=== PATIENT | female | born 1955 | race Caucasian/White ===

== ENCOUNTER 2022-12-17 11:14 | Outpatient (REF) | payer MEDICARE, SELFPAY ==
[2022-12-17 13:39] LABS: Appearance Urine Clear; Color Urine Yellow; Glucose Urine UA Negative (Negative); Leukocyte Esterase Urine Large (3+) (Negative); Nitrite Urine Negative (Negative); PH 5.5 (5.0-9.0); Specific Gravity - Urine 1.015 (1.005-1.025); UMIC TRIGGER UA YES; Urine Blood Negative (Negative); Urine Ketones Trace mg/dL (Negative); Urine Protein Negative (Neg-Trace)
[2022-12-17 13:43] LABS: MANUAL DIFF FLAG NO
[2022-12-17 13:43] LABS: Bacteria Urine None Seen (None Seen); Hyaline Casts Urine 0-2 /LPF (0-2); RBC Urine 0-2 /HPF (0-2); Squamous Epithelial Cell Urine 0-2 /HPF (0-2)
[2022-12-17 13:50] LABS: Basophils Percent Auto 0.4 % (0-2); Eosinophils Absolute Auto 0.1 X10*3/uL (0.0-0.4); Eosinophils Percent Auto 1.2 % (0-4); Hematocrit 44.4 % (37.0-47.0); Hemoglobin 14.5 g/dl (12.0-16.0); Imm Gran Abs Auto 0.01 X10*3/uL (0.00-0.03); Imm Gran Pct Auto 0.2 % (0.0-0.4); Lymphocytes Absolute Auto 1.6 X10*3/uL (1.2-4.9); Lymphocytes Percent Auto 28.3 % (20-40); Mean Corpuscular HGB Conc 32.7 g/dl (31.0-35.0); Mean Corpuscular Hemoglobin 29.2 pg (27.0-33.0); Mean Corpuscular Volume 89.5 fL (80.0-98.0); Mean Platelet Volume 11.8 fL (9.4-12.3); Monocytes Absolute Auto 0.4 X10*3/uL (0.1-1.2); Monocytes Percent Auto 7.6 % (2-11); Neutrophils Absolute Auto 3.5 x10*3/uL (2.0-8.3); Neutrophils Percent Auto 62.3 % (45-73); Platelet Count 122 X10*3/uL (160-400); Red Blood Count 4.96 X10*6/uL (4.20-5.50); Red Cell Distribution Width 12.5 % (11.0-16.0); White Blood Count 5.7 X10*3/uL (4.8-10.8)
[2022-12-17 14:20] LABS: Alanine Aminotransferase 21 U/L (0-31); Alkaline Phosphatase 73 U/L (39-117); Anion Gap 12 (12-20); Aspartate Amino Transferase 20 U/L (5-31); Bilirubin Total 0.7 mg/dL (0.0-1.0); Blood Urea Nitrogen 10 mg/dL (9-16); Carbon Dioxide 29 mmol/L (22-29); Chloride 106 mmol/L (96-108); Cholesterol 191 mg/dL; Estimated Glomerular Filt Rate > 60; Glucose Fasting 91 mg/dL (60-99); HDL Cholesterol 50 mg/dL; LDL Cholesterol Calculated 128 mg/dl; Potassium 4.8 mmol/L (3.3-5.1); Sodium 142 mmol/L (135-145); Total Protein 6.1 g/dL (6.5-8.0); Triglycerides 68 mg/dL
[2022-12-17 14:40] LABS: Free T4 (Free Thyroxine) 1.09 ng/dL (0.71-1.85); Thyroid Stimulating Hormone 0.48 uIU/mL (0.32-4.0); Vitamin D 25-OH Total 24.9 ng/mL (>30)
== END 2022-12-17 11:15 | disposition home or self-care (01) ==
LOC: HO.10HDL 11:14
PROVIDERS: Visit Provider Internal Medicine
DX: Z00.00 Encounter for general adult medical examination without abnormal findings (principal)
CPT/HCPCS: 36415; 80053; 80061; 81001; 82306; 84439; 84443; 85025

== ENCOUNTER 2022-12-22 11:45 | Outpatient (REF) | payer MEDICARE, SELFPAY ==
[2022-12-22 14:00] LABS: Appearance Urine Clear; Color Urine Yellow; Glucose Urine UA Negative (Negative); Leukocyte Esterase Urine Small (1+) (Negative); Nitrite Urine Negative (Negative); PH 6.5 (5.0-9.0); Specific Gravity - Urine 1.015 (1.005-1.025); UMIC TRIGGER UACC YES; Urine Blood Negative (Negative); Urine Ketones Negative (Negative); Urine Protein Negative (Neg-Trace)
[2022-12-22 14:06] LABS: Bacteria Urine None Seen (None Seen); Hyaline Casts Urine 0-2 /LPF (0-2); RBC Urine 0-2 /HPF (0-2); Squamous Epithelial Cell Urine 0-2 /HPF (0-2); UACC Culture Trigger YES
== END 2022-12-22 11:46 | disposition home or self-care (01) ==
LOC: HO.10HDL 11:45
PROVIDERS: Visit Provider Internal Medicine
DX: R31.9 Hematuria, unspecified (principal)
CPT/HCPCS: 81001; 87086

== ENCOUNTER 2024-07-07 08:00 | Outpatient (RCR) | payer MEDICARE, SELFPAY | END 2024-07-07 08:40 | disposition home or self-care (01) | LOC: HO.PT 08:00 | PROVIDERS: PCP Internal Medicine; Visit Provider Obstetrics & Gynecology | DX: R32 Unspecified urinary incontinence (principal) | CPT/HCPCS: 97112; 97140; 97162 ==

== ENCOUNTER 2024-07-07 08:39 | Outpatient (REF) | payer MEDICARE, SELFPAY ==
[2024-07-07 08:56] LABS: MANUAL DIFF FLAG NO
[2024-07-07 09:11] LABS: Appearance Urine Clear; Basophils Percent Auto 0.8 % (0-2); Color Urine Yellow; Eosinophils Absolute Auto 0.1 X10*3/uL (0.0-0.4); Eosinophils Percent Auto 1.1 % (0-4); Glucose Urine UA Negative (Negative); Hematocrit 43.7 % (37.0-47.0); Hemoglobin 14.4 g/dl (12.0-16.0); Imm Gran Abs Auto 0.01 X10*3/uL (0.00-0.03); Imm Gran Pct Auto 0.2 % (0.0-0.4); Leukocyte Esterase Urine Negative (Negative); Lymphocytes Absolute Auto 1.1 X10*3/uL (1.2-4.9); Lymphocytes Percent Auto 21.2 % (20-40); Mean Corpuscular Hemoglobin 30.1 pg (27.0-33.0); Mean Corpuscular Volume 91.2 fL (80.0-98.0); Mean Platelet Volume 10.7 fL (9.4-12.3); Monocytes Absolute Auto 0.4 X10*3/uL (0.1-1.2); Monocytes Percent Auto 8.4 % (2-11); Neutrophils Absolute Auto 3.6 x10*3/uL (2.0-8.3); Neutrophils Percent Auto 68.3 % (45-73); Nitrite Urine Negative (Negative); PH 7.5 (5.0-9.0); Platelet Count 152 X10*3/uL (160-400); Red Blood Count 4.79 X10*6/uL (4.20-5.50); Red Cell Distribution Width 12.6 % (11.0-16.0); Specific Gravity - Urine <= 1.005 (1.005-1.025); Urine Blood Negative (Negative); Urine Ketones Negative (Negative); Urine Protein Negative (Neg-Trace); White Blood Count 5.2 X10*3/uL (4.8-10.8)
[2024-07-07 09:46] LABS: Alanine Aminotransferase 20 U/L (0-31); Albumin Level 4.1 g/dL (3.5-5.0); Alkaline Phosphatase 81 U/L (39-117); Anion Gap 9 (12-20); Aspartate Amino Transferase 17 U/L (5-31); Bilirubin Total 0.8 mg/dL (0.0-1.0); Blood Urea Nitrogen 13 mg/dL (9-16); Calcium 9.6 mg/dL (8.4-10.2); Carbon Dioxide 30 mmol/L (22-29); Chloride 107 mmol/L (96-108); Cholesterol 177 mg/dL (<200); Estimated Glomerular Filt Rate > 60; Glucose Fasting 103 mg/dL (60-99); HDL Cholesterol 61 mg/dL (>40); LDL Cholesterol Calculated 105 mg/dL (<100); Potassium 4.3 mmol/L (3.3-5.1); Sodium 142 mmol/L (135-145); Total Protein 6.6 g/dL (6.5-8.0); Triglycerides 57 mg/dL (<150)
[2024-07-07 10:04] LABS: Vitamin D 25-OH Total 59.7 ng/mL (>30)
== END 2024-07-07 08:40 | disposition home or self-care (01) ==
LOC: HO.LAB 08:39
PROVIDERS: PCP Internal Medicine; Visit Provider Internal Medicine
DX: E78.00 Pure hypercholesterolemia, unspecified (principal); M85.88 Other specified disorders of bone density and structure, other site; H40.9 Unspecified glaucoma
CPT/HCPCS: 36415; 80053; 80061; 81003; 82306; 85025; 87086

== ENCOUNTER 2025-07-13 08:36 | Outpatient (REF) | payer MEDICARE, SELFPAY ==
[2025-07-13 09:36] LABS: MANUAL DIFF FLAG NO
[2025-07-13 10:32] LABS: Hematocrit 44.1 % (37.0-47.0); Hemoglobin 14.5 g/dl (12.0-16.0); Imm Gran Abs Auto 0.02 X10*3/uL (0.00-0.03); Imm Gran Pct Auto 0.3 % (0.0-0.4); Lymphocytes Absolute Auto 1.3 X10*3/uL (1.2-4.9); Mean Corpuscular HGB Conc 32.9 g/dl (31.0-35.0); Mean Corpuscular Hemoglobin 30.3 pg (27.0-33.0); Mean Corpuscular Volume 92.3 fL (80.0-98.0); NRBC Abs Auto 0.000 X10*3/uL (0.0-0.012); NRBC Pct Auto 0.0 /100WBC (0.0-0.2); Platelet Count 163 X10*3/uL (160-400); Red Blood Count 4.78 X10*6/uL (4.20-5.50); White Blood Count 6.2 X10*3/uL (4.8-10.8)
[2025-07-13 11:00] LABS: Alanine Aminotransferase 24 U/L (0-31); Albumin Level 4.3 g/dL (3.5-5.0); Alkaline Phosphatase 84 U/L (39-117); Anion Gap 10 (12-20); Aspartate Amino Transferase 34 U/L (5-31); Blood Urea Nitrogen 15 mg/dL (9-16); Calcium 9.7 mg/dL (8.4-10.2); Carbon Dioxide 29 mmol/L (22-29); Chloride 108 mmol/L (96-108); Cholesterol 171 mg/dL (<200); Estimated Glomerular Filt Rate > 60; HDL Cholesterol 60 mg/dL (>40); Potassium 4.3 mmol/L (3.3-5.1); Sodium 143 mmol/L (135-145); Total Protein 6.6 g/dL (6.5-8.0); Triglycerides 97 mg/dL (<150)
== END 2025-07-13 08:37 | disposition home or self-care (01) ==
LOC: HO.LAB 08:36
PROVIDERS: PCP Internal Medicine; Visit Provider Student in an Organized Health Care Education/Training Program
DX: Z76.89 Persons encountering health services in other specified circumstances (principal); Z13.1 Encounter for screening for diabetes mellitus; M85.80 Other specified disorders of bone density and structure, unspecified site; H40.9 Unspecified glaucoma; E78.49 Other hyperlipidemia; K64.4 Residual hemorrhoidal skin tags; Z85.3 Personal history of malignant neoplasm of breast
CPT/HCPCS: 36415; 80053; 80061; 82306; 83036; 84443; 85025; 96127; 99202

== ENCOUNTER 2025-07-13 08:36 | Outpatient (AMB) | payer MEDICARE, SELFPAY ==
--- NOTE | 2025-07-13 07:45 | A.OFFPC_ITS ---
Vital Signs 07/13/25 08:42 Height 5 ft 1 in Weight 139 lb BMI 26.3 BP 110/72 Blood Pressure Location Rt brachial Position Sitting Respiration 18 Pulse 84 Pulse Source Pulse Oximeter Temp 97.9 F Temp Source Temporal Artery Scan Pulse Oximetry (%) 98 Oxygen Delivery Method Room Air Intake Visit Reasons: Routine /Dr Langston Planner Scheduler Required: No Accompanied by: Self / Same As Patient Allergies No Known Allergies Allergy (Verified 07/13/25 07:45) Medication List - Last Reconciled 07/13/25 by Joseph Palacios MD ascorbate calcium (vitamin C) 500 mg PO DAILY calcium carb-vitamin D3-vit K2 500 mg calcium- 200 unit-90 mcg tabs PO latanoprost 0.005% drps ophthalmic (eye) multivitamin 1 tab PO DAILY Tobacco use date assessed: 07/13/25 Fall risk assessment: No Falls in past year Last assessed Fall Risk: 07/13/25 Dental Screening Dental Screen Date: 07/13/25 Did you have a dental visit in the last 12 months?: Yes Did you have a dental problem in the last 6 months where you did not have access to dental care?: No Was dental information given to patient?: Patient has dentist HPI HPI Comments History of Present Illness Details The patient is a 69-year-old female presenting with a concern regarding hemorrhoids. She reports the presence of a small lump in the rectal area, which she initially noticed after undergoing a hysterectomy at the beginning of the year. The lump does not cause pain but feels unusual. The patient follows a healthy diet high in fiber, which she believes helps maintain regular bowel movements, though these do not alleviate the lump issue. During this visit, she expressed the desire to address this concern and sought a professional evaluation. The patient has a past medical history significant for breast cancer, with two episodes managed with treatment, and the most recent recurrence occurring two to three years ago. She underwent a left breast mastectomy followed by reconstruction. She also has a history of having undergone cataract surgery for ocular issues, and she currently manages ocular hypertension with latanoprost eye drops. Additionally, the patient has been diagnosed with osteopenia and is managing it through lifestyle and dietary modifications. She reports seasonal allergies, which occur intermittently. There is no known family history of heart disease or diabetes, though her mother had breast and uterine cancer. Medical History: - Breast cancer, twice treated; last rec urrence 2-3 years ago followed by left breast mastectomy and reconstruction - History of hysterectomy earlier this y ear - Cataract surgery for ocular issues - Osteopenia - Ocular hypertension - Seasonal allergies Surgical History: - Left breast mastectomy with reconstruc tion - Hysterectomy at the beginning of this year - Cataract surgery Medications: - Latanoprost eye drops (for ocular hype rtension) - Multivitamins - Vitamin C and calcium supplementation - Super blue-green algae Family History: - Maternal history of breast and uterine cancer - No family history of heart disease or diabetes reported Social History: - Currently living in her mother's house post-divorce - No use of tobacco, alcohol, marijuana, cocaine, heroin - Diet emphasizes healthy eating, high i n fiber with minimal junk or sugary foods - Participates in regular physical activ ity, including [employer]ating and work as a polygenist - Experiences a high stress level while caring for an elderly parent - Noted weight loss potentially related to stress, recently stabilized [facility] Medical History (Updated 07/13/25 @ 09:32 by Joseph Palacios MD) Hemorrhoidal skin tag Hyperlipidemia Glaucoma Osteopenia History of breast cancer Establishing care with new doctor, encounter for Surgical History (Updated 07/13/25 @ 09:29 by Joseph Palacios MD) Status post abdominal hysterectomy History of colonoscopy (~06/22/17) Social History Housing: House Patient Tobacco Use Status: Never used Tobacco e-Cigarette/Vaping Use: Never Used service: No Current occupational status: employed and retired Current occupation: [employer] Questionnaire PHQ-9 Over the last 2 weeks, how often have you been bothered by any of the following problems? 1. Little interest or pleasure in doing things: not at all 2. Feeling down, depressed, or hopeless: not at all 3. Trouble falling or staying asleep, or sleeping too much: not at all 4. Feeling tired or having little energy: not at all 5. Poor appetite or overeating: not at all 6. Feeling bad about yourself - or that you are a failure or have let yourself or your family down: not at all 7. Trouble concentrating on things, such as reading the newspaper or watching television: not at all 8. Moving or speaking so slowly that other people could have noticed. Or the opposite - being so fidgety or restless that you have been moving around a lot more than usual: not at all 9. Thoughts that you would be better off or of hurting yourself in some way: not at all Total score: 0 Depression Screening Interpretation: Negative Depression Screening Done: Yes 72437 - PHQ-9 Billing: Yes Source: Developed by Drs. Stan López, Roopa Marques, Nestor Tavarez and colleagues, with an educational bryant from [email or web address]. Thrive Questionnaire Date Thrive assessed: 07/13/25 I am a: Patient What is your living situation today?: I have a steady place to live Within the past 12 months, did the food you bought not last and you didn't have the money to get more?: Never true Within the past 12 months, did you worry whether your food would run out before you got money to buy more?: Never true Do you have trouble paying for medicines?: No Do you have trouble getting transportation to medical appointments?: No Do you have trouble paying your heating and electricity bill?: No Do you have trouble taking care of your child, family member or friend?: No Do you have trouble with day-to-day activities such as bathing, preparing meals, shopping, managing finances, etc.?: No Are you currently unemployed and looking for a job?: No Are you interested in more education?: No THRIVE Score: 0 AUDIT C Alcohol Use Questionnaire (AUDIT-C) 1. How often do you have a drink containing alcohol?: Never 3. How often do you have six or more drinks on one occasion?: Never Total Score: 0 Score Reviewed/Action Taken: Yes CHARLOTTE-7 AMB Questionnaire CHARLOTTE-7 Date CHARLOTTE - 7 assessed: 07/13/25 Feeling nervous, anxious, or on edge: 0 = Not at all Not being able to stop or control worryin = Not at all Worrying too much about different things: 0 = Not at all Trouble relaxin = Not at all Being so restless that it is hard to sit still: 0 = Not at all Becoming easily annoyed or irritable: 0 = Not at all Feeling afraid as if something awful might happen: 0 = Not at all Total CHARLOTTE-7 score (0-4 normal; 5-9 mild; 10-14 moderate; 15-21 severe): 0 Source: Developed by Drs. Stan López, Roopa Marques, Nestor Tavarez and colleagues, with an educational bryant from [email or web address]. CHARLOTTE-7 Assessment Billing CHARLOTTE-7 Assessment Tool: CHARLOTTE-7 Assessment 83348 Review of Systems Const Details: - Constitutional: Denies depression; mood good; denies weight gain - HEENT: Reports past cataract surgery - Cardiovascular: Denies family history of heart disease - Respiratory: No symptoms reported - Gastrointestinal: Reports a rectal lump; denies bowel movement issues - Genitourinary: Post-hysterectomy - Musculoskeletal: Engages in regular exercise; reports multivitamin use - Allergic/Immunologic: Reports seasonal allergies - Skin/Breast: Hemorrhoid issue mentioned All systems reviewed & are unremarkable except as reviewed in HPI and above Physical exam (Primary Care) Vital Signs: Last Vital Signs Temp 97.9 F 07/13/25 08:42 Pulse 84 07/13/25 08:42 Resp 18 07/13/25 08:42 BP 110/72 07/13/25 08:42 Pulse Ox 98 07/13/25 08:42 Oxygen Delivery Method Room Air 07/13/25 08:42 BMI result Body Mass Index 26.3 Tobacco/Smoking Status: Tobacco use Status Tobacco use date assessed 07/13/25 07/13/25 07:46 Patient Tobacco Use Status Never used Tobacco 07/13/25 08:46 e-Cigarette/Vaping Use Never Used 07/13/25 08:46 PHQ-9: PHQ-9 Score PHQ-9: Total score 0 07/13/25 08:50 Depression Screening Interpretation: Negative Thrive Assessment: Date of Thrive Assessment Date Thrive assessed 07/13/25 07/13/25 08:50 Const Other: General: +Alert and oriented, Well nourished, No acute distress. Eye: Pupils are equal, round and reactive to light, Intact accommodation, Extraocular movements are intact, Normal conjunctiva, Vision unchanged. HENT: Normocephalic, Atraumatic, Tympanic membranes are clear, Normal hearing, Oral mucosa is moist, No pharyngeal erythema, Ear canals patent. Respiratory: Lungs CTA bilaterally, No wheeze, Respirations are non-labored. Cardiovascular: Regular rate, Regular rhythm, S1 auscultated, S2 auscultated, No murmur, Good pulses equal in all extremities, Normal peripheral perfusion, Mild swelling in legs. Gastrointestinal: Soft, Non-tender, Non-distended, Normal bowel sounds, No organomegaly, Presence of external hemorrhoid. Musculoskeletal: Normal range of motion, Normal strength, No tenderness, No swelling, No deformity, Normal gait. Integumentary: Warm, Dry, [place], Intact. Neurologic: Alert, Oriented, Normal sensory, Normal motor function, No focal defects, Cranial Nerves II-XII are grossly intact, Normal deep tendon reflexes. Psychiatric: Cooperative, Appropriate mood & affect, Normal judgment. Coding Level of Care Code New Pt Level 4 (29049) Diagnoses History of breast cancer Z85.3 Status post abdominal hysterectomy Z90. Osteopenia, unspecified location M85.80 Osteopenia location: unspecified Glaucoma, unspecified glaucoma type, unspecified laterality H40.9 Glaucoma type: unspecified Laterality: unspecified laterality Other hyperlipidemia E78.49 Hyperlipidemia type: other hyperlipidemia Hemorrhoidal skin tag K64.4 Additional Codes CHARLOTTE-7 Assessment Billing - CHARLOTTE-7 Assessment Tool: CHARLOTTE-7 Assessment 49201 ([id number]) PHQ-9 - 73370 - PHQ-9 Billing: Yes ([id number]) Time Spent (min) 35 Assessment & Plan Assessment & Plan (1) History of breast cancer: Comment: - Previous mastectomy and reconstruction noted; patient in remission. - Continues regular follow-up as per oncological recommendations. - Uptodate on screening Code(s): Z85.3 - Personal history of malignant neoplasm of breast Category: Medical (2) Status post abdominal hysterectomy: Comment: - Status post hysterectomy October of this year - Currently stable without any complaints Code(s): Z90.710 - Acquired absence of both cervix and uterus Category: Surgical (3) Osteopenia: Comment: - Completed a bone scan at a center in [place], and diagnosed with osteopenia - Currently being managed with OTC supplementation - Requested patient bring records from external center Code(s): M85.80 - Other specified disorders of bone density and structure, unspecified site Category: Medical Qualifiers: Osteopenia location: unspecified Qualified Code(s): M85.80 - Other specified disorders of bone density and structure, unspecified site (4) Glaucoma: Comment: - Managed with latanoprost eye drops; follow up with supervisor dog license officer as needed. Code(s): H40.9 - Unspecified glaucoma Category: Medical Qualifiers: Glaucoma type: unspecified Laterality: unspecified laterality Qualified Code(s): H40.9 - Unspecified glaucoma (5) Hyperlipidemia: Comment: - Discussed the importance of regular monitoring and potential lifestyle modifications to manage cholesterol. - Last LDL elevated over 100, patient also not interested in medication Code(s): E78.5 - Hyperlipidemia, unspecified Category: Medical Qualifiers: Hyperlipidemia type: other hyperlipidemia Qualified Code(s): E78.49 - Other hyperlipidemia Plan: Health maintenance: - Regular screening mammography up to date; next due in 2025. - Recommended earlier colonoscopy given 8-9 years since the last screening and current concerns. - Reinforcement of healthy lifestyle, diet, and exercise - Advised compression stockings for leg swelling Patient was informed and verbally consented to the use of an ambient scribe for clinic note documentation during this visit. (6) Hemorrhoidal skin tag: Comment: Reports having a lesion around her rectum for multiple years that has not changed in size and remains stable and without causing any discomfort with defecation or any active concerns. On exam does have a skin tag at the 6 o'clock position which is not tender or 10. Code(s): K64.4 - Residual hemorrhoidal skin tags Category: Medical Plan Today, we reviewed the patient's history and current concerns. I conducted a physical examination which confirmed its classification as a skin tag. After a discussion about management options, I advised a conservative approach, focusing on dietary adjustments given the absence of pain. I also addressed the patient's concerns over her post-mastectomy care, her ocular health, and general lifestyle, including osteopenia management. Regarding her cholesterol, I suggested dietary monitoring. We also revisited her screening needs, punctuating the importance of a follow-up colonoscopy and adherence to health maintenance schedules, including compression stockings for leg edema. Plans to follow up annually or as necessary based on her evolving healthcare needs were established. Orders: Orders Complete Blood Count Auto Diff Today Z76.89 - Persons encountering health services in other specified circumstances Hemoglobin A1c Today Z76.89 - Persons encountering health services in other specified circumstances Lipid Panel Today Z76.89 - Persons encountering health services in other specified circumstances TSH reflex Free T4 Today Z76.89 - Persons encountering health services in other specified circumstances Vitamin D 25-OH Total Today Z76.89 - Persons encountering health services in other specified circumstances Comprehensive Met. Panel Today Z76.89 - Persons encountering health services in other specified circumstances Patient Instructions: - Increase dietary fiber intake to help manage the hemorrhoid. - Continue to use latanoprost eye drops as prescribed. - Engage in regular exercise and maintain current lifestyle habits. - Wear compression stockings to help with leg swelling. - Schedule a colonoscopy sooner than the initially planned date, due to increased concerns. - Monitor cholesterol levels through dietary intake and regular screening. - Follow up annually or as needed based on healthcare requirements.
[2025-07-13 08:42] VITALS: BP 110/72; PULSE 84; RESP 18; TEMP 36.6; O2SAT 98; BMI 26.3
--- OUTSIDE RECORDS SUMMARY | 2025-07-13 08:55 | XMS_ITS | Clinical Summary ---
Author Organization [facility] Address [address] [place] [phone] Phone Care Team Providers Care Signal Mechanic Name Role Phone Shady Langston MD Primary Care Provider Social History Tobacco Use Types Packs/Day Years Used Date Smoking Tobacco: Never Assessed Comments Unknown Sex and Gender Information Value Date Recorded Sex Assigned at Not on file Legal Sex Female 2:22 PM EDT Gender Identity Not on file Sexual Orientation Not on file Plan of Treatment Not on file Medical Devices Not on file Insurance [employer] POS PPO REPLACEMENT [employer] PPO REPLACEMENT [employer] [place] PPO REPLACEMENT [employer] [employer] PPO REPLACEMENT [employer] [place] [employer] PPO REPLACEMENT [employer] PPO REPLACEMENT Care Teams Signal Mechanic Relationship Specialty Start Date End Date Shady Langston MD [address] [place] [address] Dr PHILLIP [address] [place] [id number] PCP - General Internal Medicine 03/21/24 Additional Source Comments The information contained in this document represents components of the legal health record. It is not the complete legal health record.[facility]
--- OUTSIDE RECORDS SUMMARY | 2025-07-13 08:55 | XMS_ITS | Patient Health Record ---
Author Organization [facility] Address [address] [place] [address] Care Team Providers Care Customer Engineer Name Role Phone Bea Manning DO Primary Care Provider David Moore Unavailable [phone] Reason For Referral No Information Medications Medication SIG (Take, Route, Fr equency, Duration) Notes Start Date End Date Status Multivitamin Active Vitamin D 2000 UNIT Orally Active Problems No Known Problems Plan Of Treatment No Information Insurance Providers Payer Name Payer Address Payer Phone Subscriber Number Group Number Insured Name Patient Relationship to Insured Coverage Start Date Coverage End Date [facility] [address] [place] [address] [id number] Vince Sher Spouse - patient is the spouse of the insured Medical (General) History Medical History History ICD Code Measles Mumps Chicken pox breast cancer Surgical History Surgery Date(Month/Year) appendectomy tonsillectomy and adenoidectomy breast tumor removal rotator cuff tear repair
--- OUTSIDE RECORDS SUMMARY | 2025-07-13 08:55 | XMS_ITS | Continuity of Care Document ---
Author Organization [facility] [address] [place] [address] Phone [phone] Care Team Providers Care Culinary Art Teacher Name Role Phone Shady Langston M.D. Care Team Information Receiv er [phone] Problems Active Problems Provider Date Carcinoma of breast Ella Wu M.D. Onset: 07/13/2023 Osteopenia Ella Wu M.D. Ons et: 07/13/2023 Social History Type Date Description Comments Sex Female Sex Unknown Lives With Spouse Occupation Dental Hygienist Work Status Part-Time Employment ETOH Use Occasionally consumes alcoho l Tobacco Use Start: Unknown Patient has never smoked Allergies and adverse reactions Description No Known Drug Allergies Medications Active Medications SIG Qnty Indications Order ing Provider Date Latanoprost0.005% Solution apply one drop to each eye at bedtime. Unknown Vitamin C993uhv (1000 Ut) Capsules 1 by mouth every day 100caps Ella Wu M.D. ProbioticTablets DR 1 by mouth every day Ella Wu M.D. Multivitamin Adults 50+Adlt 50+ Tablets 1 by mouth every day Ella Wu M.D. Vital Signs Date Vital Result Comment 07/14/2024 9:07am BP Systolic 138 mmHg BP Diastolic 78 mmHg Heart Rate 100 /min Height 61 inches 5'1 Weight 137.38 lb BMI (Body Mass Index) 26.0 kg/m2 Results Test Acquired Date Facility Test Result H/L Range Note TSH Rfx on Abnormal to Free T4 07/14/2024 [facility] TSH Rfx on Abnormal to Free T4 0.525 uIU/mL 0.450-4. 500 Electrolytes 09/14/2023 [facility] Sodium 143 mmol/L (133-145 ) Potassium 4.7 mmol/L (3.6-5.2 ) Chloride 107 mmol/L (98-107) Bicarbonate 26 mmol/L (22-29) Anion Gap 10 (4-17) Comprehensive Metabolic Panl 08/24/2023 [facility] Glucose 105 mg/dL High (70-99) BUN 16 mg/dL (8-23) Creatinine 0.6 mg/dL (0.5-1.0 ) Sodium 141 mmol/L (133-145 ) Potassium 5.4 mmol/L High (3.6-5.2 ) Chloride 105 mmol/L (98-107) Bicarbonate 27 mmol/L (22-29) Anion Gap 9 (4-17) Albumin 4.0 GM/DL (3.4-4.8 ) Calcium 9.6 mg/dL (8.6-10. 5) Bilirubin,Total 0.5 mg/dL (0-1.2 ) Total Protein 6.2 GM/DL (6.2-8.2 ) Ag Ratio 1.8 Ast 16 U/L (0-32) Alk Phos 108 U/L High (35-104) Alt 19 U/L (0-33) Estimated GFR Creatinine 97 ML/MIN/1.7 3M2 1 25Oh Vitamin D 08/24/2023 [facility] 25Oh Vitamin D 48.7 NG/ML (20-50) PTH, Intact 08/24/2023 [facility] PTH, Intact 47 pg/mL (15-65) N-Telopeptide Cross Links, Urine 08/24/2023 [facility] Cross Linked N-Telopeptides 147 2 Creat, Urine 25.2 3 N-Telopeptide/C r eat Ratio 66 4 NTX Interpretaion Comment 5 25Oh Vitamin D 07/27/2023 [facility] 25Oh Vitamin D <pending> PTH, Intact 07/27/2023 [facility] PTH, Intact <pending> 1 Creatinine based est imated glomerular filtration (eGFR) in adults is calculated using the National Kidney Foundation recommended 2020 CKD-EPI equation. Estimates GFR from serum creatinine, age and sex. 2 Reference range: Not Estab. Unit: nmol BCE Test performed at [address] [address] 3 Reference range: Not Estab. Unit: mg/dL [facility] [address] [place] [address] 4 Reference range: 0 t o 89 Unit: nM BCE/mM Cr 5 (NOTE) The N-telopeptide and Creatinine are used to calculate the N-telo/Creat. Ratio which is referred to as NTx . Suggested guidelines for the clinical use of NTx are as follows: 1. Menopausal Women not on Hormone Replacement Therapy (HRT): Women with a baseline NTx value >38 are at significant risk for a decrease in bone mineral density (BMD) after 1 year compared to women on HRT. The probability of a decline in BMD increases with NTx value as follows: (1): Baseline NTx Probability of Decrease in BMD 18- 38 1.4 p EQ 0.28 38- 51 2.5 p EQ 0.03 51- 67 3.8 p EQ 0.0006 67-188 17.3 p EQ 0.0001 2. Menopausal Women Receiving Antiresorptive Therapy: The probability that treatment is effective after three months is increased when the measured NTx value is <or EQ 38 nM BCE/mM LUMBER PLANER, or NTx has decreased >or EQ 30% from baseline.[1] 3. Patients with Paget's Disease of Bone: The probability that treatment is effective after one month is increased when the measured NTx value is within the reference range, or NTx has decreased >or EQ 30% from baseline.[2] 1. Meghan CH, Stein NH, Marcio GS, et al. Am J Med, 102:29-37,1997. (1):M757, 1996. 2. Bone H, Vidal J, et al. J Bone Min Res.11(1):M757,1995 Test performed at [facility], [address] [place] [address] Procedures Date Code Description Status 07/14/2024 62916 Collection Of Venous Blood B y Venipuncture Completed Medical Devices Description No Information Available Encounters Type Date Location Provider Dx Diagnosis Office Visit 07/14/2024 9:00a Main Office Ella Wu M.D. M85.80 Ot disrd of bone density and structure, unspecified site R63.4 Abnormal weight loss Assessments Date Code Description Provider 07/14/2024 M85.80 Other specified disorders of bone density and structure, unspecified site Ella Wu M.D. 07/14/2024 R63.4 Abnormal weight loss Peggy Wu M.D. Plan of Treatment No Information Available Functional Status Description No Information Available Mental Status Description No Information Available Referrals Description No Information Available
--- OUTSIDE RECORDS SUMMARY | 2025-07-13 08:55 | XMS_ITS | Encounter Summary ---
Author Organization [facility] Address [address] [place] [phone] Phone Care Team Providers Care Track Car Operator Name Role Phone Shady Langston MD Primary Care Provider Reason for Referral * Physical Therapy (Routine) - Closed Specialty Diagnoses / Procedures Referred By Contac t Referred To Contact Physical Therapy Diagnoses Encounter for rehabilitation Verena Morgan MD [address] [place] [id number] Phone: tel: fax: [facility] [address] [place] [address] Phone: tel: Referral ID Status Reason Start Date Expiration Date Visits Re quested Visits Authorized [id number] Closed 03/21/2024 03/21/2025 1 1 Encounter Details Date Type Department Care Team (Latest Contact Info) Description 03/21/2024 Transcribe Orders [facility] [address] [place] [address] Verena Morgan MD [address] [place] [id number] Encounter for rehabilitation (Primary Dx) Social History Tobacco Use Types Packs/Day Years Used Date Smoking Tobacco: Never Assessed Comments Unknown Sex and Gender Information Value Date Recorded Sex Assigned at Not on file Legal Sex Female 2:22 PM EDT Gender Identity Not on file Sexual Orientation Not on file documented as of this encounter Plan of Treatment Scheduled Referrals Name Type Priority Associated Diagnoses Orde r Schedule Ambulatory referral to [facility] Physical Therapy Outpatient Referral Routine Encounter for rehabilitation Ordered: 03/21/2024 documented as of this encounter Visit Diagnoses Diagnosis Encounter for rehabilitation- Primary documented in this encounter Care Teams Track Car Operator Relationship Specialty Start Date End Date Shady Langston MD [address] [place] [address] [place] [address] PCP - General Internal Medicine 03/21/24 documented as of this encounter Additional Source Comments The information contained in this document represents components of the legal health record. It is not the complete legal health record.[facility]
--- OUTSIDE RECORDS SUMMARY | 2025-07-13 08:55 | XMS_ITS | Patient Health Record ---
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 Yes How often did you have a dri nk containing alcohol in the past year? 2 to 4 times a month (2 points) How many drinks did you have on a typical day when you were drinking in the past year? 1 or 2 drinks (0 point) How often did you have 6 or more drinks on one occasion in the past year? Never (0 point) Points 2 Interpretation Negative Section Notes: Nonsmoker; no sig alcohol Problems Problem Type SNOMED Code ICD Code Onset Dates Problem Status W/U Status Risk Notes Problem 982857600 Encounter for screening for malignant neoplasm of colon (Z12.11) Active confirmed Problem 898453111 Preprocedural examination (Z01.818) Active confirmed Plan Of Treatment Future Test Test Name Order Date COLONOSCOPY 02/12/2017 Insurance Providers Payer Name Payer Address Payer Phone Subscriber Number Group Number Insured Name Patient Relationship to Insured Coverage Start Date Coverage End Date [facility] [address] [place] [phone] [id number] PETE CONTRERAS Self - patient is the insured Medical (General) History Medical History History ICD Code Screening colonoscopy 2005-hyperplastic polyps, diverticulosis, and small internal hemorrhoids Breast cancer on the left in 1989--lumpe ctomy, XRT, chemo Denies [place],DM,CVA,Lung disease,renal dise ase Glaucoma Surgical History Surgery Date(Month/Year) Appendectomy Lumpectomy as above Rotator cuff on the right
== END 2025-07-13 09:18 | disposition home or self-care (01) ==
LOC: HO.HMCHD 08:36
PROVIDERS: PCP Student in an Organized Health Care Education/Training Program; Visit Provider Student in an Organized Health Care Education/Training Program
DX: Z85.3 Personal history of malignant neoplasm of breast (principal); Z90.710 Acquired absence of both cervix and uterus; M85.80 Other specified disorders of bone density and structure, unspecified site; H40.9 Unspecified glaucoma; E78.49 Other hyperlipidemia; K64.4 Residual hemorrhoidal skin tags